=== PATIENT | female | born 1945 | race Caucasian/White ===

== ENCOUNTER 2019-02-01 06:40 | Day surgery (SDC) | payer MEDICARE, BC ==
[~2019-02-01] VITALS: Ht 162.6 cm; Wt 88.5 kg
[2019-02-01 07:10] LABS: BASOPHILS 0.4 % (0-2); EOSINOPHILS 1.1 % (0-7); HEMATOCRIT 27.1 % (36.0-48.0); HEMOGLOBIN 8.1 g/dL (12-16); IMMATURE GRANULOCYTES 0.4 % (0-5); LYMPHOCYTES 13.5 % (15-50); MCH 26.3 pg (26.0-34.0); MCHC 29.9 g/dL (31.0-37.0); MEAN PLATELET VOLUME 8.5 fL (7.4-10.4); MONOCYTES 9.4 % (2-11); NEUTROPHILS 75.2 % (40-80); PLATELET COUNT 249 10x3/uL (130-400); RBC 3.08 10x6/uL (4.00-5.40); WBC 5.6 10x3/uL (4.8-10.8)
[2019-02-01 07:29] LABS: INR 1.12 (0.85-1.17); PROTIME 13.9 SECONDS (11.6-15.0)
[2019-02-01 07:33] LABS: ANION GAP 10.3 mmol/L (8-16); CALCIUM 9.4 mg/dL (8.5-10.1); CARBON DIOXIDE 32.4 mmol/L (21.0-32.0); CREATININE - SERUM 1.7 mg/dL (0.6-1.3); POTASSIUM - SERUM 3.7 mmol/L (3.5-5.1)
[2019-02-01] MEDS ORDERED: ISOSORBIDE MONO30 M1 PO (09:03)
[2019-02-01] MEDS ORDERED: FOSRENOL1000 MG PO (09:03)
[2019-02-01] MEDS ORDERED: LIPITOR40 MG PO (09:03)
[2019-02-01] MEDS ORDERED: RENA-VITE TABL0.8 MG PO (09:04)
[2019-02-01] MEDS ORDERED: PHOSLO667 MG PO (09:04)
[2019-02-01] MEDS ORDERED: ELIQUIS5 MG PO (09:04)
[2019-02-01] MEDS ORDERED: ANUSOL-HC25 MG RC (09:05)
[2019-02-01] MEDS ORDERED: HUMULIN 70100 UNIT/1 SC (09:05)
[2019-02-01] MEDS ORDERED: HYDRALAZINE HCL25 MG PO (09:06)
[2019-02-01] MEDS ORDERED: ZOFRAN ODT4 MG/UDTAB PO (09:06)
[2019-02-01] MEDS ORDERED: COREG12.5 MG PO (09:06)
[2019-02-01] MEDS ORDERED: MIRALAX17 GM PO (09:07)
[2019-02-01] MEDS ORDERED: COLACE100 MG PO (09:07)
[2019-02-01] MEDS ORDERED: HYDROCODON-ACE1 EAC7 PO (09:07)
[2019-02-01] MEDS ORDERED: ASPIRIN81 MG PO (09:08)
[2019-02-01] MEDS ORDERED: FUROSEMIDE40 MG PO (09:08)
[2019-02-01 09:18] VITALS: Ht 162.6 cm; Wt 88.5 kg
--- NOTE | 2019-02-01 14:03 | NUR ---
1400 PT IV REMOVED AND PRESSURE HELD. ASSISTED WITH GETTING DRESSED. LEFT ARM SLING AND INSTRUCTIONS GIVEN. APT MADE. ORDERS NOTED. PT STATED SHE FELT A LITTLE DIZZY AND WANTED TO LAY DOWN. HOB ELEVATED. O2 SAT LOW BUT SHE IS BEING WORKED UP FOR SLEEP APNEA
--- NOTE | 2019-02-01 14:19 | NUR ---
PT DENIES PAIN/NEEDS AT THIS TIME. PT STATES THAT SHE DOES NOT FEEL WEAK ANYMORE. WILL CONTINUE TO MONITOR.
--- NOTE | 2019-02-02 12:38 | OP ---
PATIENT NAME: FRANCIS LEVINE MEDICAL RECORD: [id number] :45 LOCATION:[facility] ADMISSION DATE: SURGEON: JIM REYNOSO MD DATE OF OPERATION: 02/01/2019 REFERRED BY: Aston Urias MD PREOPERATIVE DIAGNOSES: End-stage renal disease, on dialysis with a tunneled dialysis catheter and dependence on hemodialysis. OPERATION PERFORMED: Creation of a left brachiocephalic arteriovenous fistula. SURGEON: Jim Reynoos MD ANESTHESIA: Regional nerve block and TIVA per [employer]. REFERRING PHYSICIAN: Dr. Aston Urias. SURGEON: Jim Reynoso MD PREOPERATIVE NOTE: Ms. Levine is a 73-year-old white female patient from [place], who has end-stage renal disease and is on dialysis now with a right-sided tunneled dialysis catheter. She needs a long-term access and was referred to me for that. She is brought to the operating room at this time to create an AV fistula in her left arm. DESCRIPTION OF PROCEDURE: Under nerve block and IV sedation, the patient was placed in supine position and the arm prepped and draped in a sterile manner. Nitroglycerin ointment was applied to the intact skin of the arm and forearm and a [place] drain was used as a proximal venous tourniquet. I examined her with Duplex ultrasound and noted that there was a suitable median cubital vein draining to the cephalic vein in the upper arm to make a primary fistula and a clean looking brachial artery. At the wrist, the artery and vein more widely and both were small in caliber and I felt that we would most likely have a good fistula, which can mature if we did a brachiocephalic. I made a transverse incision and exposed the brachial artery and controlled it with Silastic loops. I exposed the median cubital vein and ligated it distally and divided the deep or perforating branch was what I actually used for the anastomosis. It was ligated distally with a 3-0 Vicryl and divided and the vein was then flushed with heparinized saline and clamped. The site for anastomosis was chosen and the artery was opened and flushed proximally and distally with heparinized saline. The arteriotomy was about 7 mm in diameter and the vein was about 5 mm in diameter. The anastomosis was then done end of vein to side of artery with continuous running 7-0 Prolene. When completed and the occluding loops and clamps were released, excellent flow developed immediately within the fistula with a good bruit and continuous pulsatile flow by Doppler. The suture line was hemostatic. Hemostasis was assured with minimal use of electrocautery. The wound was irrigated with Ancef/gentamicin solution and then closed with interrupted inverted 3-0 Vicryl and then running intracuticular 4-0 Stratafix. The incision was further closed with Dermabond glue and dressed with Maxorb Ag, Tegaderm, and Cavilon skin prep and the patient in stable condition, was taken to the recovery room. There was minimal blood loss during the procedure, less than 5 cc. None was replaced. Sponges, instruments, and needles were accounted for. No drain was used and no surgical specimen submitted for histopathology. OPERATIVE REPORT [id number] FRANCIS LEVINE PLAN: I will have Ms. Levine return to my office in about 2 weeks. She can leave the original operative dressing on until then or she may change it at any time and just keep her wound covered with clean, dry gauze. I have not written any new prescriptions for analgesics, I think that by the time her nerve block wears off that topical ice and/or Tylenol should suffice for what I expect to be very minimal or mild discomfort. TRANSINT:[id number] Voice Confirmation ID: [id number] DOCUMENT ID: [id number] JIM REYNOSO MD at 1238 CC: ASTON URIAS [id number] DICTATION DATE: 02/01/19 1222 ORDNANCE TECHNICIAN: 02/01/19 2218 [facility] 02/01/19 [id number] [place] [address]
== END 2019-02-01 14:52 | disposition home or self-care (01) ==
LOC: D.OPS 06:40
PROVIDERS: Surgery; ATTEND Internal Medicine Nephrology
DX: N18.6 End stage renal disease (principal); Z99.2 Dependence on renal dialysis